=== PATIENT | female | born 1995 | race Two or more races ===

== ENCOUNTER 2020-10-29 13:29 | Emergency (ER) | payer BC, OTHER ==
[~2020-10-29] VITALS: Ht 162.6 cm; Wt 74.4 kg
[2020-10-29] MEDS ORDERED: ACETAMINOPHEN 500 MG TAB PO ONE (16:00)
[2020-10-29 16:01] VITALS: BP 114/81
== END 2020-10-29 16:39 | disposition home or self-care (01) ==
LOC: ER 13:29
DX: S16.1XXA Strain of muscle, fascia and tendon at neck level, initial encounter (principal); V43.52XA Car driver injured in collision with other type car in traffic accident, initial encounter; Y93.89 Activity, other specified; Y92.410 Unspecified street and highway as the place of occurrence of the external cause; Y99.8 Other external cause status

== ENCOUNTER 2022-07-01 03:30 | Emergency (ER) | payer BC, OTHER ==
[~2022-07-01] VITALS: Ht 162.6 cm; Wt 68.8 kg
[2022-07-01 04:10] LABS: Basophils # (auto) 0.1 10 ^3/uL (0-0.2); Eosinophils # (auto) 0.2 10 ^3/uL (0-0.8); Hemoglobin 10.3 g/dL (12.2-16.2); Mean Corpuscular Volume 71.4 fL (80.0-100.0); Nucleated Red Blood Cells % 0.1 %
[2022-07-01 04:13] LABS: Basophils % (auto) 0.8 % (0.0-2.0); Eosinophils % (auto) 2.1 % (0.0-7.0); Hematocrit 32.5 % (36.0-46.0); Lymphocytes % (auto) 17.5 % (10.0-50.0); Mean Corpuscular Hemoglobin 22.5 pg (28.0-32.0); Mean Corpuscular Hgb Conc. 31.5 g/dL (32.0-36.0); Monocytes # (auto) 0.9 10 ^3/uL (0-1.3); Monocytes % (auto) 8.1 % (0.0-12.0); Neutrophils # (auto) 8.3 10 ^3/uL (1.6-8.6); Neutrophils % (auto) 71.5 % (37.0-80.0); Red Blood Cells 4.56 10^6/uL (4.0-5.20); Red Cell Distribution Width 17.9 % (11.8-14.3); White Blood Cell 11.6 10^3/uL (4.4-10.8)
[2022-07-01 04:21] LABS: Albumin 3.4 g/dL (3.4-5.0); BUN/Creatinine Ratio 20.3; Calcium 8.7 mg/dL (8.5-10.1); Potassium 3.7 mmol/L (3.5-5.1)
[2022-07-01 04:24] LABS: Bilirubin, Total 0.2 mg/dL (0.2-1.0); Total Protein 7.2 g/dL (6.4-8.2)
[2022-07-01 06:58] VITALS: BP 119/80
[2022-07-01 08:44] LABS: Urine Bacteria NONE SEEN /hpf (None Seen); Urine Blood 3+ /uL (Negative); Urine Mucus FEW (None Seen); Urine WBC 14 /hpf (0 - 5)
[2022-07-01] MEDS ORDERED: NAPR500T31 PO (08:54)
[2022-07-01] MEDS ORDERED: BACDST PO (08:54)
== END 2022-07-01 09:00 | disposition home or self-care (01) ==
LOC: ER 03:30
DX: N92.0 Excessive and frequent menstruation with regular cycle (principal); N39.0 Urinary tract infection, site not specified; Z86.2 Personal history of diseases of the blood and blood-forming organs and certain disorders involving the immune mechanism; Z79.899 Other long term (current) drug therapy
CPT/HCPCS: 36415; 76856; 80053; 81001; 81025; 85025